=== PATIENT | male | born 1995 | race Caucasian/White ===

== ENCOUNTER 2022-08-05 13:00 | Emergency (ER) | payer SELFPAY ==
[2022-08-05] MEDS ORDERED: BACTROBAN OINT22 GM EXT (16:48)
[2022-08-05] MEDS ORDERED: CEPHALEXIN500 M1 PO (16:48)
== END 2022-08-05 17:25 | disposition home or self-care (01) ==
LOC: ER1 13:00
DX: S01.01XA Laceration without foreign body of scalp, initial encounter (principal); R40.2410 Glasgow coma scale score 13-15, unspecified time; W22.8XXA Striking against or struck by other objects, initial encounter; Y99.0 Civilian activity done for income or pay
CPT/HCPCS: 12001; 70450; 90471; 90715; 99283